=== PATIENT | male | born 1940 | race Caucasian/White ===

== ENCOUNTER → 2023-10-06 11:12 | Outpatient (REF) | payer OTHER, SELFPAY | LOC: HWRAD 11:12 | PROVIDERS: ATTENDING PHYSICIAN Internal Medicine Critical Care Medicine; FAMILY PHYSICIAN Internal Medicine Geriatric Medicine | DX: R59.0 Localized enlarged lymph nodes (principal) | CPT/HCPCS: 71250 ==

== ENCOUNTER 2023-10-20 03:52 | Emergency (ER) | payer OTHER, SELFPAY ==
[2023-10-20 04:06] VITALS: BP 144/83
--- NOTE | 2023-10-20 04:37 | ED.GENMED ---
History of Present Illness
General
Chief Complaint: Male Genito-Urinary Symptoms
Source: patient
Exam Limitations: none
Time Seen by Provider: 10/20/23 04:14
Nursing documentation reviewed up to this point in time: agreed with
Travel History
Have you had any contact with someone who has COVID-19?: No
Do you have any symptoms of coronavirus? Fever > 100 degrees, chills, cough, shortness of breath, sore throat, loss of taste or smell, muscle aches, or headache?: No
History of Present Illness
History of Present Illness:
82 y/o M presents with to ED. Patient states patient woke up at 0200 and was trying to shave himself. Patient states patient usually becomes confused like this when he has a UTI. Patient is currently aware he is in ED and
knows day of week. He resides at home with his . Patient last UTI was 1.5 months ago and he was prescribed abx. Patient states patient has had 4-5 UTIs in past 2 years. He does have a beatty catheter placed for about 2 years now and
reports no issues. Patient denies dysuria, fevers, chills, nausea, vomiting, abdominal pain, back pain, chest pain, or injuries/fall. 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
If applicable-neuro sx onset
Onset of symptoms known: Yes
Date of onset of symptoms: 10/20/23
Time of onset of symptoms: 02:00
Past History
Past History
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
ED Past Surgical History: Urological
Patient has exhibited threatening behavior?: No
PSI?: No
Social History
Tobacco: Non-smoker
Alcohol: None
Drug: None
Personal:
Living: other (September 2022 living in a rehab)
Employment: Retired
Family History
Family History: Other (Noncontributory)
Review of Systems
Review of Systems
All Other Systems: ROS reviewed and negative except as documented in HPI and ROS
Constitutional: Reports no symptoms
EENT: Reports no symptoms
Respiratory: Reports no symptoms
Cardiac: Reports no symptoms
ABD/GI: Reports no symptoms
: Reports no symptoms
Musculoskeletal: Reports no symptoms
Skin: Reports no symptoms
Neurological: Reports no symptoms
Endocrine: Reports no symptoms
Hematologic/Lymphatic: Reports no symptoms
Psychiatric: Reports other (confusion)
Phy Exam
General Physical Exam
General Presentation: well appearing and no apparent distress
General age: appears stated age
General Skin: warm and dry
General Habitus: normal
General Mental: alert
General Hydration: appears well hydrated
General Chronic Disability: urinary catheter
Cardiovascular Exam
Cardiovascular Exam: regular rate/rhythm, no edema, no gallop, no murmur and normal peripheral pulses
Pulmonary Exam
Pulmonary Exam: lungs clear, no respiratory distress, no rales, no crackles and no rhonchi
Gastrointestinal Exam
Gastrointestinal Exam: non tender, soft, non distended and no cva tenderness
Neurological Exam
Neurological Exam: alert, oriented x3, CN II-XII intact, no motor deficits and speech normal
Skin Exam
Skin Exam: normal color and warm/dry
Psychiatric Exam
Psychiatric Exam: normal mood/affect
Scores
NIH Stroke Score
Level of Consciousness: 0 - Alert
Best Horizontal Gaze: 0-Normal
Visual Verduzco: 0=Normal, no visual loss
Facial Palsy: 0=Normal, symmetrical
Course
Orders/Labs/Results
Orders:
Orders
10/20/23 04:49
Complete Blood Count/With Diff Urgent
Urinalysis Reflex To Culture Urgent
Date Specimen was Collected: 10/20/23
Time Specimen was Collected: 04:42
Urine Microscopic Reflex Cult Urgent
Urine Culture Urgent
DIXIE Source: U
Specimen Description:
Date Specimen was Collected: 10/20/23
Time Specimen was Collected: 04:42
10/20/23 05:12
Comprehensive Metabolic Panel Urgent
10/20/23 06:18
Fosfomycin [Monurol] 3 gm PO ONCE ONE
Abnormal Lab Results
10/20/23 10/20/23
04:49 05:12
RDW 15.0 H %
(11.5-14.5)
MPV 10.7 H fL
(7.4-10.4)
BUN 28 H mg/dl
(9-20)
Glucose 102 H mg/dl
(70-99)
Ur Occult Blood Reflex 3+ A
(Negative)
Leukocyte Esterase Rfl 2+ A
(Negative)
Urine RBC 70-80 A /HPF
(0-2)
Urine WBC (Reflex) >100 A /HPF
(0-5)
Urine Bacteria (Reflex) Many A
(Negative)
10/20/23 04:49
10/20/23 05:12
Vital Signs
Initial and Last Documented VS:
Initial Vital Signs
Temp Pulse Resp BP Pulse Ox
98.2 F 88 20 144/83 99
10/20/23 04:06 10/20/23 04:06 10/20/23 04:06 10/20/23 04:06 10/20/23 04:06
Last Documented Vital Signs
Temp Pulse Resp BP Pulse Ox
98.2 F 88 20 144/83 99
10/20/23 04:06 10/20/23 04:06 10/20/23 04:06 10/20/23 04:06 10/20/23 04:06
MDM/Problems Addressed
Differential Diagnosis Includes:
UTI
Pyelonephritis
Medication AMS
Stroke
MDM/Problems Addressed:
82 y/o M with recurrent UTI presents to ED with confusion. Physical exam grossly unremarkable as above. UA ordered. Medication side effect considered given patient is on multiple medications. However, patient has not started new meds or has taken
more than prescribed. Stroke unlikely given patient exam is normal. No speech or motor defects. Patient is able to answer questions and is aware of surroundings.
*Critical Care Note
Total Time (30-74mins, 75-104mins- exclusive of procedures): Not Applicable
ED Attending Note
-
Portions of this chart may have been created with voice recognition software.� Occasional wrong word or��sound alike� substitutions may have occurred due to the inherent limitations of voice recognition software.
Discharge Plan
Departure
Patient Disposition: Home (Routine Discharge)
Date of Disposition: 10/20/23
Time of Disposition: 06:23
Patient with high blood pressure during this ER visit?: Yes
Condition: Good
Discharge Problem:
Acute UTI (urinary tract infection)
Instructions: Urinary Tract Infection, Adult ED, BLOOD PRESSURE
Prescriptions:
No Action
simvastatin 20 MG tablet
20 mg PO DAILY@1530
cholecalciferol (vitamin D3) [Vitamin D3] 25 mcg (1,000 unit) Tablet
25 mcg PO DAILY Qty: 0
Citrucel 500 mg Tablet
1,000 mg PO BID
omeprazole 20 mg Capsule,Delayed Release(Dr/Ec)
20 mg PO DAILY@0930
mirtazapine 7.5 mg Tablet
15 mg PO DAILY@1929
ipratropium-albuterol 0.5 mg-3 mg(2.5 mg base)/3 mL solution for nebulization
3 ml INHALATION R BID
potassium citrate 10 mEq (1,080 mg) tablet extended release
10 meq PO BID@0930,1300
Myrbetriq 25 mg tablet extended release 24 hr
25 mg PO DAILY@193
me-xgf-SI-Kn-Os-mxhalpg-lutein 0.4-162-18 mg Tablet
1 tab PO DAILY
cefuroxime axetil 250 mg tablet
250 mg PO BID Qty: 10 0RF
Referrals:
Minh Jones MD [Family Provider] -
Activity Restrictions/Additional Instructions:
It was a pleasure meeting you and taking part in your care. We hope for your continued healing and wellness.
Please read discharge instructions in their entirety. However, they are for general education and may not describe your exact diagnosis at discharge. Information on your ER visit and medical conditions were discussed with you along with appropriate
follow up information...
If indicated, please take your medications as instructed and indicated on discharge paperwork.
Please schedule a follow up appointment as directed. Call to schedule an appointment
Please return to the emergency department with ANY change in, persisting, or worsening of symptoms. If any of your symptoms do not improve, or persist, or become more severe within 6-12 hours, please return to the emergency department for further
care.
Please return to the emergency department if you develop a headache, neck pain/stiffness, fever greater than 100.4F, chest pain, shortness of breath, persistent nausea, vomiting, slurred speech, difficulty walking, numbness/tingling, weakness, signs
of infection or any other symptoms that are worrisome to you.
If you have any questions or concerns please do not hesitate to call the Hospital at or E-mail me directly at
Interventions
Interventions:
*Risk Screen - Suicide Last Done: 10/20/23 05:05
*General Assessment Last Done: 10/20/23 04:06
*Neglect/Abuse Screening Last Done: 10/20/23 04:06
ED- Fall Risk Assessment Last Done: 10/20/23 04:06
ED-Male Genitourinary Assessment Last Done: 10/20/23 05:05
Discharge Date and Time
Print Language: KHMER
[2023-10-20 05:05] VITALS: BMI 23.5
[2023-10-20 05:06] LABS: % Basophils 0.6 % (0-2); % Eosinophils 3.3 % (0-6); % Immature Granulocytes 0.1 % (0-0.5); % Lymphocytes 22.8 % (20.5-51.1); % Monocytes 7.7 % (1.7-9.3); % Neutrophils 65.5 % (42.2-75.2); Absolute Eosinophils 0.2 10^3/uL (0-0.7); Absolute Lymphocytes 1.7 10^3/uL (1.2-3.4); Absolute Monocytes 0.6 10^3/uL (0.1-0.6); Absolute Neutrophils 4.7 10^3/uL (1.4-6.5); Hematocrit 41.6 % (39.0-52.0); Hemoglobin 13.9 g/dL (13.0-18.0); Mean Corp Hgb Conc. 33.4 g/dL (33.0-37.0); Mean Corpuscular Volume 86.7 fL (80.0-94.0); Mean Platelet Volume 10.7 fL (7.4-10.4); Nucleated Red Blood Cells % 0 % (-); Platelet Count 201 10^3/uL (130-400); White Blood Cell Count 7.2 10^3/uL (4.8-10.8)
[2023-10-20 05:13] LABS: Urine Albumin Trace (Neg - Trace); Urine Bilirubin Negative (Negative); Urine Character Slightly Cloudy (Clear); Urine Color Yellow; Urine Glucose Negative (Negative); Urine Ketone Negative (Negative); Urine Leukocyte 2+ (Negative); Urine Nitrite Negative (Negative); Urine Occult Blood 3+ (Negative); Urine Specific Gravity 1.015 (<1.030); Urine Urobilinogen Negative (Neg - 1+)
[2023-10-20 05:24] LABS: Urine Squamous Cell >30 /LPF (Few)
[2023-10-20 05:25] LABS: Urine Amorphous Seen; Urine Bacteria Many (Negative); Urine Calcium Oxalate Crystals Seen; Urine White Cell >100 /HPF (0-5)
[2023-10-20 05:26] LABS: Urine Mucus Moderate
[2023-10-20 05:28] LABS: Urine Red Blood Cell 70-80 /HPF (0-2)
[2023-10-20 06:13] LABS: ALT (SGPT) 38 U/L (0-50); AST (SGOT) 28 U/L (17-59); Albumin 3.6 g/dl (3.5-5.0); Alkaline Phosphatase 88 U/L (38-126); Blood Urea Nitrogen 28 mg/dl (9-20); Calcium 9.5 mg/dl (8.4-10.2); Carbon Dioxide 27 mmol/L (22-30); Chloride 102 mmol/L (98-107); Estimated Creatinine Clearance 60 ml/min; Glucose 102 mg/dl (70-99); Potassium 4.2 mmol/L (3.5-5.1); Sodium 137 mmol/L (135-145); eGFR > 60.00
[2023-10-20] MEDS: MONUROL 3 GM PO (06:36)
== END 2023-10-20 06:44 | disposition home or self-care (01) ==
LOC: EMR 03:52
PROVIDERS: EMERGENCY PHYSICIAN Student in an Organized Health Care Education/Training Program; FAMILY PHYSICIAN Internal Medicine Geriatric Medicine
DX: N39.0 Urinary tract infection, site not specified (principal); I10 Essential (primary) hypertension
CPT/HCPCS: 99283; 80053; 81003; 81015; 85025; 87086

== ENCOUNTER 2024-01-09 21:25 | Emergency (ER) | payer OTHER, SELFPAY ==
[2024-01-09 21:26] VITALS: BP 178/94
[2024-01-09 22:00] VITALS: BP 121/69
[2024-01-09 22:03] VITALS: BMI 22.6
[2024-01-09 22:15] LABS: Urine Albumin 2+ (Neg - Trace); Urine Bilirubin Negative (Negative); Urine Character Very Cloudy (Clear); Urine Color Yellow; Urine Glucose Negative (Negative); Urine Ketone Negative (Negative); Urine Leukocyte 2+ (Negative); Urine Nitrite Negative (Negative); Urine Occult Blood 4+ (Negative); Urine Specific Gravity 1.015 (<1.030); Urine Urobilinogen 1+ (Neg - 1+)
--- NOTE | 2024-01-09 22:16 | EDRN ---
Pt's spouse says pt is here because he probably has a uti. Pt with permanent indwelling beatty. says pt got confused this evening which made pt anxious which is what prompted to think pt might has a uti. also noted urine
darker in color past 2 days. No chills/fever/cough.
[2024-01-09 22:26] LABS: Urine Calcium Oxalate Crystals Present; Urine White Cell >100 /HPF (0-5)
--- NOTE | 2024-01-09 22:55 | ED.GENMED ---
History of Present Illness
General
Chief Complaint: Breathing Problem
Source: patient and family
Exam Limitations: none
Time Seen by Provider: 01/09/24 22:42
Nursing documentation reviewed up to this point in time: agreed with
Travel History
Have you had any contact with someone who has COVID-19?: No
Do you have any symptoms of coronavirus? Fever > 100 degrees, chills, cough, shortness of breath, sore throat, loss of taste or smell, muscle aches, or headache?: Yes
Symptoms:: shortness of breath
History of Present Illness
History of Present Illness:
This a pleasant 83-year-old male who presents with confusion and weakness. Patient significant other states that he feels that he has a urinary tract infection. Patient denies fever, chills, nausea or vomiting. Significant other states that
patient has had urinary tract infections in the past at has typically gets at home for them. At last visit he had Monurol, which was effective. Patient lives at home with his . Patient is awake, alert, oriented x 3.
Vital signs are stable. Patient not hypoxic
Nursing note reviewed. I agree with nursing documentation up to this point in time.
Home Meds and allergies reviewed.
NUMBER AND COMPLEXITY OF PROBLEMS ADDRESSED AT THE ENCOUNTER
� Chronic conditions affecting care: Frequent UTIs
� Acute Exacerbation and/or Progression of Chronic Illness: Acute urinary tract infection
� Differential Diagnosis includes: UTI, dehydration, kidney stone, pyelonephritis
AMOUNT AND/OR COMPLEXITY OF DATA TO BE REVIEWED AND ANALYZED
I performed an independent evaluation of the following and my interpretation is:
EKG:
CT:
X-rays:
Ultrasound:
Laboratory Studies: Urinalysis shows urinary tract infection
Other:
Review of other/old records:
Clinical information was obtained by an independent historian:
Prescriptions/Medications Considered but not given:
Further testing considered but not performed:
RISK OF COMPLICATIONS AND/OR MORBIDITY OR MORTALITY OF PATIENT MANAGEMENT
Social determinants of health affecting care: Good Social Support
Discussion with other providers:
Escalation of care including admission/observation vs risk of discharge considered:
Not applicable
CRITICAL CARE NOTE: Not applicable
Total Time (exclusive of procedures):
Update:
Past History
Past History
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
ED Past Surgical History: Urological
Patient has exhibited threatening behavior?: No
PSI?: No
Social History
Tobacco: Non-smoker
Alcohol: None
Drug: None
Personal:
Living: other (September 2022 living in a rehab)
Employment: Retired
Family History
Family History: Other (Noncontributory)
Review of Systems
Review of Systems
Allergies reviewed?: Yes
Other source history: family
All Other Systems: ROS reviewed and negative except as documented in HPI and ROS
Constitutional: Reports no symptoms
EENT: Reports no symptoms
Respiratory: Denies cough or trouble breathing
Cardiac: Reports no symptoms
ABD/GI: Reports no symptoms
: Reports no symptoms
Musculoskeletal: Reports no symptoms
Skin: Reports no symptoms
Neurological: Reports weakness; Denies dizzy, headache or numbness
Endocrine: Reports no symptoms
Hematologic/Lymphatic: Reports no symptoms
Psychiatric: Reports anxiety
Phy Exam
General Physical Exam
General Presentation: well appearing
General age: appears stated age
General Skin: warm and dry
General Habitus: elderly
General Mental: alert
Cardiovascular Exam
Cardiovascular Exam: regular rate/rhythm
Pulmonary Exam
Pulmonary Exam: lungs clear, no respiratory distress, no wheezing and no cough
Gastrointestinal Exam
Gastrointestinal Exam: normal bowel sounds and non tender
Neurological Exam
Neurological Exam: alert, oriented x3, no motor deficits and speech normal
Musculoskeletal Exam
Musculoskeletal Exam: neuro vasc intact and other (No CVA tenderness to palpation)
Skin Exam
Skin Exam: normal color and warm/dry
Psychiatric Exam
Psychiatric Exam: normal mood/affect
Scores
Heart Failure Risk
Heart Failure Risk Score: Not Applicable
Course
Orders/Labs/Results
Orders:
Orders
01/09/24 22:00
Tetanus/Diphth/Acelpertussis [Adacel] 0.5 ml IM .ONCE ONE
01/09/24 22:07
Urinalysis Reflex To Culture Urgent
Date Specimen was Collected: 01/09/24
Time Specimen was Collected: 22:04
Urine Microscopic Reflex Cult Urgent
Urine Culture Urgent
DIXIE Source: U
Specimen Description:
Date Specimen was Collected: 01/09/24
Time Specimen was Collected: 22:04
01/09/24 22:54
Fosfomycin [Monurol] 3 gm PO ONCE ONE
Abnormal Lab Results
01/09/24
22:07
Ur Occult Blood Reflex 4+ A
(Negative)
Leukocyte Esterase Rfl 2+ A
(Negative)
Urine WBC (Reflex) >100 A /HPF
(0-5)
Urine Albumin (Reflex) 2+ A
(Neg - Trace)
Vital Signs
Initial and Last Documented VS:
Initial Vital Signs
Temp Pulse Resp BP Pulse Ox
97.8 F 96 22 178/94 97
01/09/24 21:26 01/09/24 21:26 01/09/24 21:26 01/09/24 21:26 01/09/24 21:26
Last Documented Vital Signs
Temp Pulse Resp BP Pulse Ox
97.8 F 69 15 101/49 96
01/09/24 21:26 01/10/24 00:00 01/10/24 00:00 01/10/24 00:00 01/09/24 23:00
MDM/Problems Addressed
Differential Diagnosis Includes:
UTI which I feel is the most likely diagnosis as he does have signs of urinary tract infection on urinalysis. There is some gross hematuria which I feel is due to the UTI. I do not feel that he has a kidney stone at this point. He denies any
flank tenderness. He has no CVA tenderness to palpation. He has no fevers.
Chronic conditions affecting care:
Frequent UTIs
*Critical Care Note
Total Time (30-74mins, 75-104mins- exclusive of procedures): Not Applicable
ED Attending Note
-
Portions of this chart may have been created with voice recognition software.� Occasional wrong word or��sound alike� substitutions may have occurred due to the inherent limitations of voice recognition software.
Discharge Plan
Departure
Patient Disposition: Home (Routine Discharge)
Date of Disposition: 01/09/24
Time of Disposition: 23:46
Patient with high blood pressure during this ER visit?: Yes
Condition: Fair
Discharge Problem:
Urinary tract infection, Hematuria
Instructions: Urinary Tract Infection, Adult ED, Blood in Urine (Hematuria), Adult ED, BLOOD PRESSURE
Prescriptions:
No Action
simvastatin 20 MG tablet
20 mg PO DAILY
cholecalciferol (vitamin D3) [Vitamin D3] 25 mcg (1,000 unit) Tablet
25 mcg PO DAILY Qty: 0
Citrucel 500 mg Tablet
1,000 mg PO BID
omeprazole 20 mg Capsule,Delayed Release(Dr/Ec)
20 mg PO DAILY
mirtazapine 7.5 mg Tablet
15 mg PO DAILY
ipratropium-albuterol 0.5 mg-3 mg(2.5 mg base)/3 mL solution for nebulization
3 ml INHALATION R BID
potassium citrate 10 mEq (1,080 mg) tablet extended release
10 meq PO BID
mirabegron [Myrbetriq] 25 mg tablet extended release 24 hr
25 mg PO DAILY
Centrum Silver Tablet
1 tab PO DAILY
Probiotic Acidophilus
1 cap PO DAILY
Referrals:
Jerome Phillips Jr., MD [Active] - As needed
Activity Restrictions/Additional Instructions:
It was a pleasure meeting you and taking part in your care. We hope for your continued healing and wellness.
Please read discharge instructions in their entirety. However, they are for general education and may not describe your exact diagnosis at discharge. Information on your ER visit and medical conditions were discussed with you along with appropriate
follow up information...
If indicated, please take your medications as instructed and indicated on discharge paperwork.
Please schedule a follow up appointment as directed. Call to schedule an appointment
Please return to the emergency department with ANY change in, persisting, or worsening of symptoms. If any of your symptoms do not improve, or persist, or become more severe within 6-12 hours, please return to the emergency department for further
care.
Please return to the emergency department if you develop a headache, neck pain/stiffness, fever greater than 100.4F, chest pain, shortness of breath, persistent nausea, vomiting, slurred speech, difficulty walking, numbness/tingling, weakness, signs
of infection or any other symptoms that are worrisome to you.
If you have any questions or concerns please do not hesitate to call the Hospital at or E-mail me directly at [email or web address]
Interventions
Interventions:
*Risk Screen - Suicide Last Done: 01/09/24 22:15
*General Assessment Last Done: 01/09/24 21:30
*Neglect/Abuse Screening Last Done: 01/09/24 21:26
*ED COVID-19 Vaccine History Last Done: 01/09/24 21:30
*Nursing Disposition Last Done: 01/10/24 00:18
ED- Cardiac Assessment Last Done: 01/09/24 22:15
ED- Pulmonary Assessment Last Done: 01/09/24 22:15
Discharge Date and Time
Discharge Date/Time: 01/10/24 00:18
Print Language: [email or web address]
[2024-01-09 23:00] VITALS: BP 111/53
[2024-01-10] VITALS: BP 101/49
[2024-01-10] MEDS: MONUROL 3 GM PO (00:09)
== END 2024-01-10 00:18 | disposition home or self-care (01) ==
LOC: EMR 21:25
PROVIDERS: EMERGENCY PHYSICIAN Student in an Organized Health Care Education/Training Program; FAMILY PHYSICIAN Internal Medicine Geriatric Medicine
DX: N39.0 Urinary tract infection, site not specified (principal); R31.9 Hematuria, unspecified; E78.00 Pure hypercholesterolemia, unspecified; I10 Essential (primary) hypertension; K21.9 Gastro-esophageal reflux disease without esophagitis; F32.A Depression, unspecified; N40.0 Benign prostatic hyperplasia without lower urinary tract symptoms; Z87.440 Personal history of urinary (tract) infections; Z87.442 Personal history of urinary calculi
CPT/HCPCS: 99282; 81003; 81015; 87086

== ENCOUNTER 2024-12-13 21:59 | Emergency (ER) | payer OTHER, SELFPAY ==
[2024-12-13 22:07] VITALS: BP 156/80
[2024-12-13 22:45] LABS: % Basophils 0.6 % (0-2); % Eosinophils 3.7 % (0-6); % Immature Granulocytes 0.2 % (0-0.5); % Lymphocytes 30.8 % (20.5-51.1); % Monocytes 11.1 % (1.7-9.3); % Neutrophils 53.6 % (42.2-75.2); Absolute Eosinophils 0.2 10^3/uL (0-0.7); Absolute Lymphocytes 1.9 10^3/uL (1.2-3.4); Absolute Monocytes 0.7 10^3/uL (0.1-0.6); Absolute Neutrophils 3.3 10^3/uL (1.4-6.5); Hemoglobin 15.6 g/dL (13.0-18.0); Mean Corp Hgb Conc. 34.7 g/dL (33.0-37.0); Mean Corpuscular Hgb 30.3 pg (27.0-31.0); Mean Corpuscular Volume 87.4 fL (80.0-94.0); Mean Platelet Volume 9.9 fL (7.4-10.4); Nucleated Red Blood Cells % 0 % (-); Platelet Count 191 10^3/uL (130-400); Red Blood Cell Count 5.15 10^6/uL (4.70-6.10); White Blood Cell Count 6.2 10^3/uL (4.8-10.8)
[2024-12-13 23:00] LABS: ALT (SGPT) 42 U/L (0-50); AST (SGOT) 27 U/L (17-59); Albumin 4.2 g/dl (3.5-5.0); Alkaline Phosphatase 86 U/L (38-126); Blood Urea Nitrogen 29 mg/dl (9-20); Calcium 9.9 mg/dl (8.4-10.2); Carbon Dioxide 27 mmol/L (22-30); Chloride 104 mmol/L (98-107); Glucose 108 mg/dl (70-99); Potassium 4.2 mmol/L (3.5-5.1); Sodium 140 mmol/L (135-145); Total Bilirubin 0.9 mg/dl (0.2-1.3); Total Protein 7.4 g/dl (6.3-8.2); eGFR > 60.00
[2024-12-13 23:03] LABS: COVID-19 Antigen Negative (Negative)
[2024-12-13 23:11] LABS: Troponin I < 0.012 ng/ml
[2024-12-14 01:25] VITALS: BP 134/69
[2024-12-14] MEDS: DUONEB 3 ML INH (01:27)
--- NOTE | 2024-12-14 01:29 | ED.GENMED ---
History of Present Illness
General
Chief Complaint: Cough
Source: patient, spouse and previous hospital records (Previous hospitalization June 2023 for left lower lobe pneumonia.)
Exam Limitations: none
Time Seen by Provider: 12/14/24 00:32
Nursing documentation reviewed up to this point in time: agreed with
History of Present Illness
History of Present Illness:
This is an 83-year-old gentleman who resides at home with his . He has somewhat extensive past medical history including hypertension, hyperlipidemia, congenital myotonia, chronic bronchitis, GERD, BPH, kidney stones, urinary retention with
chronic indwelling Vargas catheter. Previous hospitalization June 2023 for treatment of left lower lobe pneumonia. He is maintained on nebulizer treatments, inhalers, as well as vibrating vest on daily basis.
He does note some chronic congestion, chronic cough but notes marked increase in shortness of breath, cough tonight after going to bed. Continues with some shortness of breath, difficulty catching his breath despite sitting up. He denies fever no
chills, no chest pain, no sore throat nor nasal congestion, no sneezing.
No abdominal pain, no nausea or vomiting. Appetite has been good. No change in weight.
No close contacts with similar symptoms.
No leg pain or swelling.
He did receive routine COVID booster December 12.
He has been complaining of some intermittent right flank pain over the past several days and has an appointment with Dr. Nice scheduled for Wednesday.
Routine Vargas catheter change every 5 weeks with unremarkable Vargas catheter change last week. Vargas has been draining clear to minimally cloudy urine. No hematuria. No dysuria nor leaking about the catheter.
Past History
Past History
ED Past Medical History: GERD, HTN, Hypercholesterolemia, Other (Kidney stones, urinary retention with chronic indwelling Vargas catheter, congenital myotonia, chronic bronchitis, GERD, UTI, pneumonia) and Other (Depression, congenital myotonia with
hereditary motor and sensory neuropathy, gait disorder, chronic Vargas for urinary retention, BPH, kidney stones)
ED Past Surgical History: Urological
Patient has exhibited threatening behavior?: No
PSI?: No
Social History
Tobacco: Non-smoker
Alcohol: None
Drug: None
Personal:
Living: other (September 2022 living in a rehab)
Employment: Retired
Family History
Family History: Other (Noncontributory)
Phy Exam
Physical Exam
Physical Exam:
GENERAL: 83-year-old gentleman appears his stated age, awake and alert, appears somewhat mildly debilitated, very mild resting tachypnea but no cough appreciated. is accompanying.
EYE: pupils equal and reactive. anicteric
NECK: Supple, nontender, no meningismus, no significant adenopathy.
ENT: posterior pharynx is without injection, scant pearly postnasal drip is noted, oral mucosa is moist. TM clear b/l, nares patent.
CARDIAC: Regular rate and rhythm. no murmur.
LUNGS: Mild resting tachypnea, mildly decreased breath sounds at bases otherwise clear to auscultation.
ABDOMEN: Soft, nondistended, without focal tenderness, no r/g, mild right CVA tenderness with percussion, normoactive BS.
NEUROLOGICAL: Alert and oriented x3, no focal neuro deficits.
SKIN: Warm and dry, normal color, skin intact. No rash.
MUSCULOSKELETAL: No C/C/E. peripheral pulses are full and equal b/l. No palpable tenderness.
PSYCH: Normal and appropriate interaction.
Course
Orders/Labs/Results
Orders:
Orders
12/13/24 22:10
Electrocardiogram (*1) Urgent
Reason for Study: Chest Pain
EKG- Treatment ONCE
12/13/24 22:11
CR Chest - 2 Views Urgent
Comment:
Reason For Exam: cough
12/13/24 22:32
COVID-19 Antigen Urgent
Source: Nasal Swab
Complete Blood Count/With Diff Urgent
Comprehensive Metabolic Panel Urgent
NT-proBNP Urgent
Comment: ADDED
Troponin I Urgent
Influenza A+B Rapid Molecular Urgent
DIXIE Source: Nasal Swab
Specimen Description:
12/14/24 00:48
Add On- LAB Urgent
Tests Added?: BNP
Urinalysis Reflex To Culture Urgent
Date Specimen was Collected: 12/14/24
Time Specimen was Collected: 01:33
12/14/24 00:49
Ipratropium/Albuterol Sulfate [Duoneb] 3 ml INH R NOW STA
12/14/24 00:52
CT Abd/pel Without Iv Or Oral Urgent
Comment:
Reason For Exam: intermittent R flank pain x few days (hx stones)
12/14/24 01:28
D-Dimer Urgent
Abnormal Lab Results
12/13/24 12/14/24
22:32 01:28
Absolute Monos (auto) 0.7 H 10^3/uL
(0.1-0.6)
Monocytes % 11.1 H %
(1.7-9.3)
D-Dimer 0.80 H ug/mlFEU
(0.00-0.50)
BUN 29 H mg/dl
(9-20)
Glucose 108 H mg/dl
(70-99)
12/13/24 22:32
12/13/24 22:32
Vital Signs
Initial and Last Documented VS:
Initial Vital Signs
Temp Pulse Resp BP Pulse Ox
97.6 F 84 16 156/80 98
12/13/24 22:07 12/13/24 22:07 12/13/24 22:07 12/13/24 22:07 12/13/24 22:07
Last Documented Vital Signs
Temp Pulse Resp BP Pulse Ox
97.6 F 73 20 132/72 98
12/13/24 22:07 12/14/24 01:46 12/14/24 01:51 12/14/24 01:51 12/14/24 01:51
MDM/Problems Addressed
Differential Diagnosis Includes:
Concern for exacerbation of chronic bronchitis, pneumonia, CHF. Less likely ACS. Other consideration is PE.
He also notes intermittent right flank pain over the past few days. History of kidney stones. Concern for ureteric stone, pyelonephritis.
Labs thus far are unremarkable, troponin is negative. Normal white blood cell count.
Chest x-ray shows clear lung cintron, no evidence of pneumonia nor definitive evidence of CHF.
EKG shows normal sinus rhythm, right bundle branch block. Similar to previous August 2023 safer heart rate has decreased from 134 to now 80.
Will check D-dimer, BNP, UA and will plan for CT abdomen pelvis.
If D-dimer elevated will plan for CT PE study
Will trial DuoNeb nebulizer for shortness of breath.
*Radiology
Radiology exam reviewed: preliminary read by ED provider (Chest x-ray shows no acute findings. Clear lung cintron. Previous left lower lobe pneumonia noted June 2023 has since resolved.) and radiology read reviewed
*Pulse Oximetry
Patient hypoxic: no
*EKG
Interpreted by ED Provider?: Yes
Comparison EKG: changes noted (Heart rate has decreased from 130 to now 80. Right bundle branch block is chronic and unchanged.)
Rate: normal
Rhythm: sinus
[place]: left axis deviation
Interval: normal interval
QRS Pattern: right bundle branch block
Ischemia: no ischemia
*Front End Web Developer Interpretation
Rate: normal
Interpretation: normal
Rhythm: sinus
*Critical Care Note
Total Time (30-74mins, 75-104mins- exclusive of procedures): Not Applicable
Update Note
Update Note:
03:10
Patient feeling markedly improved after nebulizer treatment. No further cough nor congestion. No respiratory distress.
Age-adjusted D-dimer is normal. BNP is normal.
CT shows nonobstructing calyceal stones in the kidneys and multiple stone fragments in the urinary bladder but no ureteral stone fragments, no hydronephrosis.
I suspect acute exacerbation of chronic bronchitis and will treat with a short course of prednisone.
Recommend increasing nebulizer treatments to 4 times daily at least over the next 5 to 7 days.
Stay well-hydrated on a daily basis.
A prescription for Z-Breezy has been provided to be filled and started if cough, congestion worsen or if he develops a fever.
Prompt follow-up with PCP for recheck.
Follow-up with Dr. Nevarez is on Wednesday as already scheduled.
Return precautions discussed.
ED Attending Note
-
Portions of this chart may have been created with voice recognition software.� Occasional wrong word or��sound alike� substitutions may have occurred due to the inherent limitations of voice recognition software.
Discharge Plan
Departure
Patient Disposition: Home (Routine Discharge)
Date of Disposition: 12/14/24
Time of Disposition: 03:19
Patient with high blood pressure during this ER visit?: No
Condition: Good
Discharge Problem:
Acute exacerbation of chronic bronchitis, Bilateral kidney stones
Instructions: Kidney stones in adults, Chronic bronchitis
Prescriptions:
New
prednisone 20 mg tablet
40 mg PO DAILY Qty: 10 0RF
azithromycin [Zithromax Z-Breezy] 250 mg tablet
250 mg PO DAILY 5 Days Qty: 6 0RF
Rx Instructions:
2 TABLETS DAY 1, THEN ONE TABLET DAY 2-5.
No Action
simvastatin 20 MG tablet
20 mg PO DAILY
cholecalciferol (vitamin D3) [Vitamin D3] 25 mcg (1,000 unit) Tablet
25 mcg PO DAILY Qty: 0
Citrucel 500 mg Tablet
1,000 mg PO BID
omeprazole 20 mg Capsule,Delayed Release(Dr/Ec)
20 mg PO DAILY
mirtazapine 7.5 mg Tablet
15 mg PO DAILY
ipratropium-albuterol 0.5 mg-3 mg(2.5 mg base)/3 mL solution for nebulization
3 ml INHALATION R BID
potassium citrate 10 mEq (1,080 mg) tablet extended release
10 meq PO BID
mirabegron [Myrbetriq] 25 mg tablet extended release 24 hr
25 mg PO DAILY
Centrum Silver Tablet
1 tab PO DAILY
Probiotic Acidophilus
1 cap PO DAILY
Referrals:
Emily Worley MD [Family Provider] - Call in 1-3 days for appt
Alessandro Nice MD [Active] - Keep scheduled appt
Activity Restrictions/Additional Instructions:
Increase nebulizer treatments to 4 times/day over the next week.
Stay well hydrated on a daily basis.
You have been prescribed short course of prednisone to take daily for 5 days.
If cough, congestion worsen, or if you develop a fever, fill and start the zpack
Interventions
Interventions:
*Risk Screen - Suicide Last Done: 12/13/24 22:07
*General Assessment Last Done: 12/14/24 01:39
*Neglect/Abuse Screening Last Done: 12/13/24 22:07
*ED- Fall Risk Assessment Last Done: 12/14/24 01:39
*ED COVID-19 Vaccine History Last Done: 12/13/24 22:07
ED- Pulmonary Assessment Last Done: 12/14/24 01:39
Discharge Date and Time
Print Language: CHINESE
[2024-12-14 01:42] VITALS: BMI 22.8
[2024-12-14 01:48] LABS: NT-proBNP 138 pg/ml
[2024-12-14 01:51] VITALS: BP 132/72
--- NOTE | 2024-12-14 03:29 | DOWNTIME ---
There was a [employer] Client [employer]iller Downtime on 12/14/2024 from 0200 to 12/15/2023 at 0318 . Downtime documentation of patient's care, including medication administrations, has been reconciled in the electronic record per guidelines. Refer to the
patient's paper chart under the miscellaneous tab to see printed paper medication records and downtime forms.
[2024-12-14 03:31] LABS: Urine Albumin 3+ (Neg - Trace); Urine Bilirubin Negative (Negative); Urine Character Cloudy (Clear); Urine Color Amber; Urine Glucose Negative (Negative); Urine Ketone Negative (Negative); Urine Leukocyte 3+ (Negative); Urine Nitrite Positive (Negative); Urine Occult Blood 4+ (Negative); Urine Urobilinogen Negative (Neg - 1+)
[2024-12-14 03:32] LABS: Urine Bacteria Few (Negative); Urine Calcium Oxalate Crystals Present; Urine Red Blood Cell 60-70 /HPF (0-2); Urine Squamous Cell 0-2 /LPF (Few)
== END 2024-12-14 03:46 | disposition home or self-care (01) ==
LOC: EMR 21:59
PROVIDERS: Emergency Medicine; EMERGENCY PHYSICIAN Emergency Medicine; FAMILY PHYSICIAN Internal Medicine Geriatric Medicine
DX: J20.9 Acute bronchitis, unspecified (principal); N20.0 Calculus of kidney; I10 Essential (primary) hypertension; E78.00 Pure hypercholesterolemia, unspecified; K21.9 Gastro-esophageal reflux disease without esophagitis; N40.1 Benign prostatic hyperplasia with lower urinary tract symptoms; Z87.440 Personal history of urinary (tract) infections; Z87.442 Personal history of urinary calculi
CPT/HCPCS: 99284; 94640; 71046; 74176; 80053; 81003; 81015; 83880; 84484; 85025; 85379; 87086; 87502; 87811; 93005

== ENCOUNTER 2025-02-06 15:46 | Emergency (ER) | payer OTHER, SELFPAY ==
[2025-02-06 15:48] VITALS: BP 196/111
--- NOTE | 2025-02-06 16:45 | ED.GENMED ---
Addendum entered and electronically signed by Dov Hoskins PA-C 02/08/25 07:13:
Urine culture preliminarily shows 100,000 colony-forming units of gram-negative bacilli. Given fosfomycin. Sensitivities pending
Original Note:
History of Present Illness
General
Chief Complaint: Catheter/Tube Problem
Source: patient
Exam Limitations: none
Time Seen by Provider: 02/06/25 16:34
Nursing documentation reviewed up to this point in time: agreed with
History of Present Illness
History of Present Illness:
Patient to ED with complaint of blocked beatty catheter since this AM. Reports pelvic pain and pressure. Brought to ED by spouse for eval.
Past History
Past History
ED Past Medical History: GERD, HTN, Hypercholesterolemia, Other (Kidney stones, urinary retention with chronic indwelling Beatty catheter, congenital myotonia, chronic bronchitis, GERD, UTI, pneumonia) and Other (Depression, congenital myotonia with
hereditary motor and sensory neuropathy, gait disorder, chronic Beatty for urinary retention, BPH, kidney stones)
ED Past Surgical History: Urological
Patient has exhibited threatening behavior?: No
PSI?: No
Social History
Tobacco: Non-smoker
Alcohol: None
Drug: None
Personal:
Living: other (September 2022 living in a rehab)
Employment: Retired
Family History
Family History: Other (Noncontributory)
Review of Systems
Review of Systems
Allergies reviewed?: Yes
All Other Systems: ROS reviewed and negative except as documented in HPI and ROS
Constitutional: Reports no symptoms
EENT: Reports no symptoms
Respiratory: Reports no symptoms
Cardiac: Reports no symptoms
ABD/GI: Reports no symptoms
: Reports other (blocked beatty catheter)
Musculoskeletal: Reports no symptoms
Skin: Reports no symptoms
Neurological: Reports no symptoms
Psychiatric: Reports no symptoms
Phy Exam
General Physical Exam
General Presentation: moderate distress
General age: appears stated age
General Skin: warm and dry
General Habitus: normal
General Mental: alert
Gastrointestinal Exam
Gastrointestinal Exam: non tender and soft
Genitourinary Exam Male
Exam Male: other (Beatty catheter replaced by RN. Drained immediate 600+cc. Initially blood tinged, now clear yellow urine)
Musculoskeletal Exam
Musculoskeletal Exam: neuro vasc intact
Skin Exam
Skin Exam: normal color, warm/dry and no rash
Psychiatric Exam
Psychiatric Exam: normal mood/affect
Course
Orders/Labs/Results
Orders:
Orders
02/06/25 16:47
Urinalysis Reflex To Culture Urgent
Date Specimen was Collected: 02/06/25
Time Specimen was Collected: 16:46
Urine Microscopic Reflex Cult Urgent
Urine Culture Urgent
DIXIE Source: U
Specimen Description:
Date Specimen was Collected: 02/06/25
Time Specimen was Collected: 16:46
02/06/25 18:20
Fosfomycin [Monurol] 3 gm PO ONCE ONE
Abnormal Lab Results
02/06/25
16:47
Ur Occult Blood Reflex 4+ A
(Negative)
Leukocyte Esterase Rfl 3+ A
(Negative)
Urine RBC 80-90 A /HPF
(0-2)
Urine WBC (Reflex) 26-30 A /HPF
(0-5)
Urine Bacteria (Reflex) Many A
(Negative)
Urine Albumin (Reflex) 2+ A
(Neg - Trace)
Vital Signs
Initial and Last Documented VS:
Initial Vital Signs
Temp Pulse Resp BP Pulse Ox
97.4 F 114 16 196/111 97
02/06/25 15:48 02/06/25 15:48 02/06/25 15:48 02/06/25 15:48 02/06/25 15:48
Last Documented Vital Signs
Temp Pulse Resp BP Pulse Ox
98.1 F 114 26 144/70 98
02/06/25 17:08 02/06/25 16:11 02/06/25 16:11 02/06/25 18:00 02/06/25 18:15
*Critical Care Note
Total Time (30-74mins, 75-104mins- exclusive of procedures): Not Applicable
Update Note
Update Note:
Patient to ED for blocked beatty catheter. Beatty changed by RN, drained 600+cc of initially blood tinged urine, then clear yellow urine. No further abd. pain. UA resultes reviewed with patient and spouse. Will treat for suspected UTI. Spouse
reports MOnuril has been helpful in the past and requests we use this antibiotic tonight. Monuril given. He is discharged home and will follo up with Urology as scheduled. Given instructions on s/s to return to ED and they are agreeable to plan.
ED Attending Note
-
Portions of this chart may have been created with voice recognition software.� Occasional wrong word or��sound alike� substitutions may have occurred due to the inherent limitations of voice recognition software.
Discharge Plan
Departure
Patient Disposition: Home (Routine Discharge)
Date of Disposition: 02/06/25
Time of Disposition: 18:21
Patient with high blood pressure during this ER visit?: No
Condition: Good
Covid-19: Not Applicable
Discharge Problem:
Complication, blocked Beatty catheter
Instructions: Urinary tract infections in adults, How to Care for Your Beatty Catheter, Male
Prescriptions:
No Action
simvastatin 20 MG tablet
20 mg PO DAILY
cholecalciferol (vitamin D3) [Vitamin D3] 25 mcg (1,000 unit) Tablet
25 mcg PO DAILY Qty: 0
Citrucel 500 mg Tablet
1,000 mg PO BID
omeprazole 20 mg Capsule,Delayed Release(Dr/Ec)
20 mg PO DAILY
mirtazapine 7.5 mg Tablet
15 mg PO DAILY
ipratropium-albuterol 0.5 mg-3 mg(2.5 mg base)/3 mL solution for nebulization
3 ml INHALATION R BID
potassium citrate 10 mEq (1,080 mg) tablet extended release
10 meq PO BID
mirabegron [Myrbetriq] 25 mg tablet extended release 24 hr
25 mg PO DAILY
Centrum Silver Tablet
1 tab PO DAILY
Probiotic Acidophilus
1 cap PO DAILY
prednisone 20 mg tablet
40 mg PO DAILY Qty: 10 0RF
azithromycin [Zithromax Z-Breezy] 250 mg tablet
250 mg PO DAILY 5 Days Qty: 6 0RF
Rx Instructions:
2 TABLETS DAY 1, THEN ONE TABLET DAY 2-5.
Referrals:
NONE,* [Active, Internal Medicine]
Activity Restrictions/Additional Instructions:
Follow up with urology as scheduled. Return to the emergency for any changes in/worsnening of your symtoms.
Interventions
Interventions:
*Risk Screen - Suicide Last Done: 02/06/25 15:48
*General Assessment Last Done: 02/06/25 19:01
*Neglect/Abuse Screening Last Done: 02/06/25 15:48
*ED- Fall Risk Assessment Last Done: 02/06/25 16:12
*ED COVID-19 Vaccine History Last Done: 02/06/25 16:12
*Nursing Disposition Last Done: 02/06/25 19:01
QK-Dvuxlb-Ywgnjhiloe Assessment Last Done: 02/06/25 17:08
ED-Male Genitourinary Assessment Last Done: 02/06/25 17:08
Discharge Date and Time
Discharge Date/Time: 02/06/25 19:03
Print Language: TURKMEN
[2025-02-06 16:57] LABS: Urine Albumin 2+ (Neg - Trace); Urine Bilirubin Negative (Negative); Urine Character Clear (Clear); Urine Color Yellow; Urine Glucose Negative (Negative); Urine Ketone Negative (Negative); Urine Leukocyte 3+ (Negative); Urine Nitrite Negative (Negative); Urine Occult Blood 4+ (Negative); Urine Urobilinogen Negative (Neg - 1+); Urine pH 6.5 (5.0-9.0)
[2025-02-06 17:00] VITALS: BP 130/78
[2025-02-06 17:59] LABS: Urine Bacteria Many (Negative); Urine Red Blood Cell 80-90 /HPF (0-2); Urine Squamous Cell 0-2 /LPF (Few); Urine White Cell 26-30 /HPF (0-5)
[2025-02-06 18:00] VITALS: BP 144/70
[2025-02-06] MEDS: MONUROL 3 GM PO (18:45)
== END 2025-02-06 19:03 | disposition home or self-care (01) ==
LOC: EMR 15:46
PROVIDERS: Nurse Practitioner; EMERGENCY PHYSICIAN Student in an Organized Health Care Education/Training Program; FAMILY PHYSICIAN Internal Medicine Geriatric Medicine
DX: T83.091A Other mechanical complication of indwelling urethral catheter, initial encounter (principal); Y84.6 Urinary catheterization as the cause of abnormal reaction of the patient, or of later complication, without mention of misadventure at the time of the procedure; Y73.1 Therapeutic (nonsurgical) and rehabilitative gastroenterology and urology devices associated with adverse incidents
CPT/HCPCS: 99283; 51702; 81003; 81015; 87077; 87086

== ENCOUNTER 2025-02-23 08:48 | Emergency (ER) | payer OTHER, SELFPAY ==
[2025-02-23 08:49] VITALS: BP 173/109
--- NOTE | 2025-02-23 09:38 | ED.GENMED ---
History of Present Illness
General
Chief Complaint: Catheter/Tube Problem
Time Seen by Provider: 02/23/25 09:15
History of Present Illness
History of Present Illness:
84-year-old male with history of chronic urinary retention status post Vargas catheter presents to the emergency department with concern for possible blocked Vargas catheter. Partner states that upon waking up today his drainage bag was emptied
however there was no output for the next 2 to 3 hours. On arrival to the ED there is urine in the leg bag and this was irrigated easily by RN. He reports having pain at the tip of his penis however this is since resolved. No fevers or chills.
Catheter was last changed 2 weeks ago
Past History
Past History
ED Past Medical History: GERD, HTN, Hypercholesterolemia, Other (Kidney stones, urinary retention with chronic indwelling Vargas catheter, congenital myotonia, chronic bronchitis, GERD, UTI, pneumonia) and Other (Depression, congenital myotonia with
hereditary motor and sensory neuropathy, gait disorder, chronic Vargas for urinary retention, BPH, kidney stones)
ED Past Surgical History: Urological
Patient has exhibited threatening behavior?: No
PSI?: No
Social History
Tobacco: Non-smoker
Alcohol: None
Drug: None
Personal:
Living: other (September 2022 living in a rehab)
Employment: Retired
Family History
Family History: Other (Noncontributory)
Review of Systems
Review of Systems
Allergies reviewed?: Yes
All Other Systems: ROS reviewed and negative except as documented in HPI and ROS
Phy Exam
Physical Exam
Physical Exam:
GEN: Well appearing, NAD, WDWN
HEENT: Oral mucosa moist, no scleral icterus
Cardiac: Regular rate
Lung: No respiratory distress, no tachypnea
MSK: No gross deformity or injuries
Skin: Good color, no pallor or jaundice, no rashes
Neuro: AO x3, moves all extremities freely
Psych: Calm, cooperative
Course
Orders/Labs/Results
Orders:
Orders
02/23/25 09:42
Urine Culture Urgent
DIXIE Source: Urine
Specimen Description:
Obtained by: Indwelling Catheter
Date Specimen was Collected: 02/23/25
Time Specimen was Collected: 09:41
Vital Signs
Initial and Last Documented VS:
Initial Vital Signs
Temp Pulse Resp BP Pulse Ox
97.6 F 118 18 173/109 98
02/23/25 08:49 02/23/25 08:49 02/23/25 08:49 02/23/25 08:49 02/23/25 08:49
Last Documented Vital Signs
Temp Pulse Resp BP Pulse Ox
97.6 F 118 18 173/109 98
02/23/25 08:49 02/23/25 08:49 02/23/25 08:49 02/23/25 08:49 02/23/25 09:38
MDM/Problems Addressed
MDM/Problems Addressed:
Catheter draining well in the ED, will send urine culture for completeness should patient have any further complications however do not anticipate need for treatment as this will likely be colonized. Provided patient and partner with piston syringe
and education regarding self irrigation should symptoms like this occur again
*Pulse Oximetry
SaO2: 98
Oxygen Mode of Delivery: Room air
Patient hypoxic: no (98% room air)
*Critical Care Note
Total Time (30-74mins, 75-104mins- exclusive of procedures): Not Applicable
ED Attending Note
-
Portions of this chart may have been created with voice recognition software.� Occasional wrong word or��sound alike� substitutions may have occurred due to the inherent limitations of voice recognition software.
Discharge Plan
Departure
Patient Disposition: Home (Routine Discharge)
Date of Disposition: 02/23/25
Time of Disposition: 09:39
Patient with high blood pressure during this ER visit?: No
Discharge Problem:
Complication, blocked Vargas catheter
Instructions: How to Care for Your Vargas Catheter, Male
Prescriptions:
No Action
simvastatin 20 MG tablet
20 mg PO DAILY
cholecalciferol (vitamin D3) [Vitamin D3] 25 mcg (1,000 unit) Tablet
25 mcg PO DAILY Qty: 0
Citrucel 500 mg Tablet
1,000 mg PO BID
omeprazole 20 mg Capsule,Delayed Release(Dr/Ec)
20 mg PO DAILY
mirtazapine 7.5 mg Tablet
15 mg PO DAILY
ipratropium-albuterol 0.5 mg-3 mg(2.5 mg base)/3 mL solution for nebulization
3 ml INHALATION R BID
potassium citrate 10 mEq (1,080 mg) tablet extended release
10 meq PO BID
mirabegron [Myrbetriq] 25 mg tablet extended release 24 hr
25 mg PO DAILY
Centrum Silver Tablet
1 tab PO DAILY
Probiotic Acidophilus
1 cap PO DAILY
prednisone 20 mg tablet
40 mg PO DAILY Qty: 10 0RF
azithromycin [Zithromax Z-Breezy] 250 mg tablet
250 mg PO DAILY 5 Days Qty: 6 0RF
Rx Instructions:
2 TABLETS DAY 1, THEN ONE TABLET DAY 2-5.
Referrals:
Minh Jones MD [Family Provider, Internal Medicine]
Interventions
Interventions:
*Risk Screen - Suicide Last Done: 02/23/25 08:49
*General Assessment Last Done: 02/23/25 09:52
*Neglect/Abuse Screening Last Done: 02/23/25 08:49
*ED- Fall Risk Assessment Last Done: 02/23/25 09:52
*ED COVID-19 Vaccine History Last Done: 02/23/25 09:52
*Nursing Disposition Last Done: 02/23/25 09:52
MI-[employer]kom-Cqqwyskytu Assessment Last Done: 02/23/25 09:52
ED-Male Genitourinary Assessment Last Done: 02/23/25 09:52
Discharge Date and Time
Discharge Date/Time: 02/23/25 09:53
Print Language: YORUBA
== END 2025-02-23 09:53 | disposition home or self-care (01) ==
LOC: EMR 08:48
PROVIDERS: EMERGENCY PHYSICIAN Emergency Medicine; FAMILY PHYSICIAN Internal Medicine Geriatric Medicine
DX: T83.091A Other mechanical complication of indwelling urethral catheter, initial encounter (principal); X58.XXXA Exposure to other specified factors, initial encounter; E78.00 Pure hypercholesterolemia, unspecified; I10 Essential (primary) hypertension
CPT/HCPCS: 99283; 87077; 87086

== ENCOUNTER 2025-03-01 12:15 | Emergency (ER) | payer OTHER, SELFPAY ==
[2025-03-01 12:18] VITALS: BP 191/111
--- NOTE | 2025-03-01 13:07 | ED.GENMED ---
History of Present Illness
General
Chief Complaint: Catheter/Tube Problem
Source: patient
Time Seen by Provider: 03/01/25 13:01
History of Present Illness
History of Present Illness:
84-year-old male presents emergency room complaining of inability to pass urine. Patient has a indwelling Vargas catheter which is clogged. Patient has required a Vargas catheter for 2 years. He denies fever. He is very uncomfortable from bladder
distention.
Past History
Past History
ED Past Medical History: GERD, HTN, Hypercholesterolemia, Other (Kidney stones, urinary retention with chronic indwelling Vargas catheter, congenital myotonia, chronic bronchitis, GERD, UTI, pneumonia) and Other (Depression, congenital myotonia with
hereditary motor and sensory neuropathy, gait disorder, chronic Vargas for urinary retention, BPH, kidney stones)
ED Past Surgical History: Urological
Patient has exhibited threatening behavior?: No
PSI?: No
Social History
Tobacco: Non-smoker
Alcohol: None
Drug: None
Personal:
Living: other (September 2022 living in a rehab)
Employment: Retired
Family History
Family History: Other (Noncontributory)
Phy Exam
Physical Exam
Physical Exam:
General: Awake, Alert, Oriented X3. Appears chronically ill
Vitals: unremarkable
Head: Atraumatic
Eyes: Pupils equal, EOMI
Throat: Airway intact, no exudates
Neck: Trachea midline
Lungs: Clear and equal b/l
Heart: Regular rate, no murmurs
Abd: Soft, palpable bladder, No pulsatile mass
Genitalia: Normal uncircumcised genitalia with indwelling Vargas catheter
Skin: Warm, dry, no rash
Extremities: pulses equal b/l, no edema
Course
Orders/Labs/Results
Orders:
Orders
03/01/25 13:07
Vargas Placement- Treatment ONCE
Reason for insertion: Outlet obstruction
Vital Signs
Initial and Last Documented VS:
Initial Vital Signs
Temp Pulse Resp BP Pulse Ox
97.6 F 116 20 191/111 98
03/01/25 12:18 03/01/25 12:18 03/01/25 12:18 03/01/25 12:18 03/01/25 12:18
Last Documented Vital Signs
Temp Pulse Resp BP Pulse Ox
97.6 F 116 20 191/111 98
03/01/25 12:18 03/01/25 12:18 03/01/25 12:18 03/01/25 12:18 03/01/25 13:09
MDM/Problems Addressed
MDM/Problems Addressed:
Patient presents with obstruction of his Vargas catheter. Patient's had a Vargas catheter in quite some time. He had immediate relief of symptoms with the replacement of the catheter and about 1000 cc of urine returned. Given the patient has
longstanding Vargas catheter no further intervention necessary at this point. Patient stable for discharge home. He has no fever and so obtaining a urinalysis would not be helpful as he is likely colonized.
*Pulse Oximetry
SaO2: 98
Oxygen Mode of Delivery: Room air
Patient hypoxic: no
*Critical Care Note
Total Time (30-74mins, 75-104mins- exclusive of procedures): Not Applicable
ED Attending Note
-
Portions of this chart may have been created with voice recognition software.� Occasional wrong word or��sound alike� substitutions may have occurred due to the inherent limitations of voice recognition software.
Discharge Plan
Departure
Patient Disposition: Home (Routine Discharge)
Date of Disposition: 03/01/25
Time of Disposition: 13:57
Patient with high blood pressure during this ER visit?: No
Condition: Good
Discharge Problem:
Obstructed Vargas catheter
Instructions: How to Care for Your Vargas Catheter, Male
Prescriptions:
No Action
simvastatin 20 MG tablet
20 mg PO DAILY
cholecalciferol (vitamin D3) [Vitamin D3] 25 mcg (1,000 unit) Tablet
25 mcg PO DAILY Qty: 0
Citrucel 500 mg Tablet
1,000 mg PO BID
omeprazole 20 mg Capsule,Delayed Release(Dr/Ec)
20 mg PO DAILY
mirtazapine 7.5 mg Tablet
15 mg PO DAILY
ipratropium-albuterol 0.5 mg-3 mg(2.5 mg base)/3 mL solution for nebulization
3 ml INHALATION R BID
potassium citrate 10 mEq (1,080 mg) tablet extended release
10 meq PO BID
mirabegron [Myrbetriq] 25 mg tablet extended release 24 hr
25 mg PO DAILY
Centrum Silver Tablet
1 tab PO DAILY
Probiotic Acidophilus
1 cap PO DAILY
prednisone 20 mg tablet
40 mg PO DAILY Qty: 10 0RF
azithromycin [Zithromax Z-Breezy] 250 mg tablet
250 mg PO DAILY 5 Days Qty: 6 0RF
Rx Instructions:
2 TABLETS DAY 1, THEN ONE TABLET DAY 2-5.
Referrals:
Minh Jones MD [Family Provider, Internal Medicine]
Interventions
Interventions:
*Risk Screen - Suicide Last Done: 03/01/25 12:18
*General Assessment Last Done: 03/01/25 13:45
*Neglect/Abuse Screening Last Done: 03/01/25 12:18
*ED- Fall Risk Assessment Last Done: 03/01/25 13:45
FQ-Tkjlou-Yjzkgdumtq Assessment Last Done: 03/01/25 13:45
ED-Male Genitourinary Assessment Last Done: 03/01/25 13:45
Discharge Date and Time
Print Language: MALTESE
== END 2025-03-01 14:00 | disposition home or self-care (01) ==
LOC: EMR 12:15
PROVIDERS: EMERGENCY PHYSICIAN Emergency Medicine; FAMILY PHYSICIAN Internal Medicine Geriatric Medicine
DX: T83.091A Other mechanical complication of indwelling urethral catheter, initial encounter (principal); X58.XXXA Exposure to other specified factors, initial encounter; N32.89 Other specified disorders of bladder; E78.00 Pure hypercholesterolemia, unspecified; I10 Essential (primary) hypertension
CPT/HCPCS: 51702; 99284; 71046; 93005

== ENCOUNTER 2025-03-01 16:40 | Emergency (ER) | payer OTHER, SELFPAY ==
[2025-03-01 16:57] VITALS: BP 124/81
[2025-03-01 17:48] VITALS: BP 141/72
[2025-03-01 18:00] VITALS: BP 131/66
--- NOTE | 2025-03-01 18:56 | ED.GENMED ---
History of Present Illness
General
Chief Complaint: Breathing Problem
Time Seen by Provider: 03/01/25 18:56
History of Present Illness
History of Present Illness:
TIME OF INITIAL EVALUATION
- 7 PM
REVIEW OF OLD RECORDS
- I reviewed records. The patient was seen here earlier today and was treated for a clogged indwelling Vargas catheter. At that time he had relief of symptoms after replacement of the catheter and 1000 mL of urine was returned. I also further
review records and the patient was seen here with a 'acute exacerbation of chronic bronchitis' just over 2 months ago. The patient was admitted for pneumonia 1-1/2 years ago.
Note:
CHIEF COMPLAINT(S)
Shortness of breath.
HISTORY OF PRESENT ILLNESS
The patient is an 84-year-old male presenting with shortness of breath. According to the patients , the symptom began around 4 oclock and has been concerning enough for the patient to seek medical attention. There is a history of a myotonic
disorder affecting the patients muscle cells, including the respiratory muscles, causing them to contract normally but relax slowly, impacting breathing. The patient reports feeling slightly better compared to earlier in the day but still
experiences difficulty breathing. Previous attempts at CPAP were not well-tolerated. states that he did have improvement after use of the RespiBelt and neb.
EXTERNAL RECORDS REVIEWED
The emergency room records from earlier today were reviewed. It has been a few months since the patient had a chest x-ray.
CHRONIC MEDICAL CONDITIONS SIGNIFICANTLY AFFECTING CARE
Myotonic disorder affecting respiratory muscles.
PHYSICAL EXAM
- General: Appears somewhat anxious
- HEENT: Moist oral mucosa
- Cardiovascular: No murmurs, normal heart rate, regular rhythm, No chest wall tenderness
- Pulmonary: The patient is slightly tachypneic with decreased respiratory effort however the at bedside states that he is now at his chronic baseline state and has no concerns currently, there may be some very faint rales at the bases
- Abdomen: Soft with no peritoneal signs, no tenderness
- Neurologic: Equally decreased strength all extremities, no coordination deficits
- Psychiatric: Appears somewhat anxious
- Extremities: Nontender, no edema, moves all extremities equally
- Skin: No rash, no lesions
PROBLEM LIST
- Acute: Shortness of breath, Potential Anxiety.
- Chronic: Myotonic disorder affecting respiratory function.
PLAN
- Administer a breathing treatment for the patients dyspnea.
- Obtain a chest x-ray to rule out any severe pulmonary conditions such as pneumonia.
- Reassess the patients condition post-treatment and x-ray to evaluate the possibility of discharge later this evening if symptoms improve.
DIFFERENTIAL DIAGNOSIS
The Differential Diagnosis includes, in no particular order and is not limited to:
1. Chronic obstructive pulmonary disease exacerbation
2. Congestive heart failure
3. Pulmonary embolism
4. Pneumonia
5. Anxiety-related respiratory symptoms
6. Respiratory muscle weakness secondary to the myotonic disorder
7. Acute bronchitis
8. Asthma exacerbation
9. Pleural effusion
10. Interstitial lung disease
RADIOLOGY
- Chest x-ray obtained
EKG
- Sinus 109, right bundle branch block without significant change from 03/01/2025
Heart rate while I was in the room at 7:05 PM was 96
LABS
- No clear indication for labs at this time
UPDATE
- Nebulizer given
SUMMARY OF ENCOUNTER
The patient, an 84-year-old male with a known myotonic disorder affecting respiratory muscles, presented to the emergency department with shortness of breath. Previous CPAP attempts were not well-tolerated. Upon arrival, the patients oxygen levels
were observed to be within normal limits. A chest x-ray was performed and reviewed independently by both the radiologist and myself, with no notable findings of severe pneumonia warranting hospital admission. A breathing treatment was administered,
and the patient reported some improvement in respiratory symptoms. It was determined that his current condition did not require advanced intervention such as BiPAP. The patients provided additional history, noting a potential anxiety
component to his symptoms. The decision was made to manage the patients care conservatively, considering the myotonic disorders potential impact on respiratory function.
DISPOSITION
Discharge.
ASSESSMENT
Shortness of breath potentially related to anxiety and myotonic disorder affecting respiratory muscles.
EMERGENCY TREATMENTS ADMINISTERED
Administered a breathing treatment for respiratory distress.
REASSESSMENT
Oxygen levels remained stable, and the patient did not exhibit signs that required hospital admission.
PLAN
Discharge the patient with close outpatient follow-up to monitor symptom progression. Suggest taking anxiety medication as previously used, especially before sleep, to assess the impact on his symptoms.
INDEPENDENT REVIEW OF LABS AND INTERPRETATION OF TESTS
- My independent interpretation of the chest x-ray is consistent with no signs of severe pneumonia, aligning with the radiologists report.
- My independent interpretation of oxygen levels indicates they remained stable and normal during the monitoring.
PATIENT EDUCATION AND COUNSELING
Explained to the patient and his about the myotonic disorders effect on respiratory muscles and the importance of monitoring symptoms at home. Discussed potential role of anxiety in respiratory distress and advised on the use of previously
prescribed anxiety medication.
FOLLOW-UP INSTRUCTIONS
Advise follow-up with the primary care physician or specialist to monitor respiratory symptoms and discuss management of anxiety if symptoms persist or worsen.
MEDICATION RECONCILIATION
Discussed the use of existing anxiety medications with the patient during tonights episode for potential symptom relief.
MEDICAL DECISION MAKING
- Number and Complexity of Problems Addressed: Chronic conditions affecting care include the myotonic disorder affecting respiratory function. Differential diagnosis considered: Chronic obstructive pulmonary disease exacerbation, congestive heart
failure, pulmonary embolism, pneumonia, anxiety-related respiratory symptoms, respiratory muscle weakness secondary to the myotonic disorder, acute bronchitis, asthma exacerbation, pleural effusion, interstitial lung disease.
- Data:
- Category 1: Reviewed external emergency room records from earlier today. Reviewed oxygen levels, chest x-ray findings.
- Category 2: Additional history obtained from the patients .
- Risk: Consideration of Admission/Observation: Escalation of care including admission/observation was considered given the complexity and risk of the patients presenting complaint and underlying myotonic disorder. However, ultimately I feel the
patient is safe for outpatient management with close follow-up. Reasoning: Work-up reassuring, does not reveal any acute life/organ-threatening processes, patients symptoms well controlled upon reevaluation, reexamination is reassuring, vitals are
stable, patient agreeable with discharge, reliable for follow-up.
DIAGNOSIS
- Shortness of breath due to anxiety and myotonic disorder impacting respiratory muscles (ICD-10: R06.02).
The patient states that he did feel better after the nebulizer was given but then started to feel somewhat worse. I do feel there is a component of anxiety as well. His states that he does take a sleep aid which oftentimes does help him
get to sleep. We agreed that this would be the best course of action at this time and we are all in agreement that he does not require admission to the hospital.
Past History
Past History
ED Past Medical History: GERD, HTN, Hypercholesterolemia, Other (Kidney stones, urinary retention with chronic indwelling Vargas catheter, congenital myotonia, chronic bronchitis, GERD, UTI, pneumonia) and Other (Depression, congenital myotonia with
hereditary motor and sensory neuropathy, gait disorder, chronic Vargas for urinary retention, BPH, kidney stones)
ED Past Surgical History: Urological
Patient has exhibited threatening behavior?: No
PSI?: No
Social History
Tobacco: Non-smoker
Alcohol: None
Drug: None
Personal:
Living: other (September 2022 living in a rehab)
Employment: Retired
Family History
Family History: Other (Noncontributory)
Phy Exam
Physical Exam
Physical Exam:
See HPI
Scores
Heart Failure Risk
Heart Failure Risk Score: Not Applicable
Course
Orders/Labs/Results
Orders:
Orders
03/01/25 17:02
Electrocardiogram (*1) Urgent
Reason for Study: Shortness of Breath
EKG- Treatment ONCE
03/01/25 19:05
Ipratropium/Albuterol Sulfate [Duoneb] 3 ml INH R NOW STA
CR Chest - 2 Views Urgent
Comment:
Reason For Exam: dyspnea, h/o myotonia; bronchitis
Vital Signs
Initial and Last Documented VS:
Initial Vital Signs
Temp Pulse Resp BP Pulse Ox
36.7 C 110 20 124/81 96
03/01/25 16:57 03/01/25 16:57 03/01/25 16:57 03/01/25 16:57 03/01/25 16:57
Last Documented Vital Signs
Temp Pulse Resp BP Pulse Ox
36.7 C 100 24 131/66 96
03/01/25 16:57 03/01/25 18:15 03/01/25 18:15 03/01/25 18:00 03/01/25 19:17
*Pulse Oximetry
SaO2: 96
Oxygen Mode of Delivery: Room air
Patient hypoxic: no
*Critical Care Note
Total Time (30-74mins, 75-104mins- exclusive of procedures): Not Applicable
ED Attending Note
-
Portions of this chart may have been created with voice recognition software.� Occasional wrong word or��sound alike� substitutions may have occurred due to the inherent limitations of voice recognition software.
Discharge Plan
Departure
Patient Disposition: Home (Routine Discharge)
Date of Disposition: 03/01/25
Time of Disposition: 21:19
Patient with high blood pressure during this ER visit?: Yes
Discharge Problem:
Shortness of breath, Myotonia congenita
Instructions: Shortness of Breath (Dyspnea) (DC), BLOOD PRESSURE
Prescriptions:
No Action
simvastatin 20 MG tablet
20 mg PO DAILY
cholecalciferol (vitamin D3) [Vitamin D3] 25 mcg (1,000 unit) Tablet
25 mcg PO DAILY Qty: 0
Citrucel 500 mg Tablet
1,000 mg PO BID
omeprazole 20 mg Capsule,Delayed Release(Dr/Ec)
20 mg PO DAILY
mirtazapine 7.5 mg Tablet
15 mg PO DAILY
ipratropium-albuterol 0.5 mg-3 mg(2.5 mg base)/3 mL solution for nebulization
3 ml INHALATION R BID
potassium citrate 10 mEq (1,080 mg) tablet extended release
10 meq PO BID
mirabegron [Myrbetriq] 25 mg tablet extended release 24 hr
25 mg PO DAILY
Centrum Silver Tablet
1 tab PO DAILY
Probiotic Acidophilus
1 cap PO DAILY
prednisone 20 mg tablet
40 mg PO DAILY Qty: 10 0RF
azithromycin [Zithromax Z-Breezy] 250 mg tablet
250 mg PO DAILY 5 Days Qty: 6 0RF
Rx Instructions:
2 TABLETS DAY 1, THEN ONE TABLET DAY 2-5.
Referrals:
Minh Jones MD [Family Provider, Internal Medicine]
Activity Restrictions/Additional Instructions:
The chest x-ray did not show any acute abnormality. Room air oxygen level was 96%. EKG is relatively unremarkable. Return here if worse or other concerns.
Interventions
Interventions:
*Risk Screen - Suicide Last Done: 03/01/25 16:57
*General Assessment Last Done: 03/01/25 19:17
*Neglect/Abuse Screening Last Done: 03/01/25 16:57
*ED- Fall Risk Assessment Last Done: 03/01/25 19:17
*ED COVID-19 Vaccine History Last Done: 03/01/25 19:17
ED- Cardiac Assessment Last Done: 03/01/25 19:17
ED- Pulmonary Assessment Last Done: 03/01/25 19:17
Discharge Date and Time
Print Language: UPPER SORBIAN
[2025-03-01] MEDS: DUONEB 3 ML INH (19:13)
== END 2025-03-01 21:30 | disposition home or self-care (01) ==
LOC: EMR 16:40
PROVIDERS: EMERGENCY PHYSICIAN Emergency Medicine; FAMILY PHYSICIAN Internal Medicine Geriatric Medicine
DX: G71.12 Myotonia congenita (principal); R06.02 Shortness of breath; E78.00 Pure hypercholesterolemia, unspecified; I10 Essential (primary) hypertension; J40 Bronchitis, not specified as acute or chronic
CPT/HCPCS: 94640; 99283; 71046; 93005

== ENCOUNTER 2025-04-10 12:43 | Emergency (ER) | payer MEDICARE, OTHER, SELFPAY ==
[2025-04-10 12:44] VITALS: BMI 22.3
[2025-04-10 12:52] VITALS: BP 153/103
--- NOTE | 2025-04-10 13:12 | ED.GENMED ---
History of Present Illness
General
Chief Complaint: Catheter/Tube Problem
Source: patient
Exam Limitations: none
Time Seen by Provider: 04/10/25 12:56
Nursing documentation reviewed up to this point in time: agreed with
History of Present Illness
History of Present Illness:
Note:
CHIEF COMPLAINT(S)
Bleeding from the urinary system.
HISTORY OF PRESENT ILLNESS
The patient is an 84-year-old male with a history of bladder issues, presenting with bleeding from the urinary tract. The bleeding is described as having a lot of sediment, and it is currently dripping. The patient has a chronic condition requiring
urinary catheterization due to an inability of the bladder to contract fully, likely attributable to a condition described as 'myotonia' impacting the control of the bladder. The bleeding began after a catheter was removed, and the current catheter
in place is an 18 [place] Vargas catheter.
The patient noted that the inability for the bladder to contract started after rehabilitation post-COVID, when it was found that the bladder was full despite no urinary output. This led to the initial catheter placement.
A urinary catheter had been previously placed because of suspected incomplete bladder contraction. The catheter was last changed on October 22 (three-two).
Currently, there is a plan to replace the Vargas catheter with a three-way catheter to allow for irrigation in an effort to manage the bleeding. The bleeding is suspected to be due to trauma to the urethra, likely from catheterization.
PHYSICAL EXAM
General: Chronic ill appearance.
Cardiovascular: Normal heart sounds, no heart murmurs, normal rate.
Pulmonary: No respiratory distress noted.
Gastrointestinal: Abdomen soft and non-tender.
Genitourinary: Blood present at the urethral meatus.
PROBLEM LIST
- Acute bleeding from the urinary tract, likely traumatic.
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
PLAN
- Replace the current Vargas catheter with a three-way catheter for irrigation purposes to manage the bleeding.
- Monitor urine output and ensure that the bleeding resolves with treatment.
DIFFERENTIAL DIAGNOSIS
The Differential Diagnosis includes, in no particular order and is not limited to:
1. Urethral trauma
2. Bladder cancer
3. Urinary tract infection
4. Benign prostatic hyperplasia
5. Bladder stones
6. Coagulopathy
7. Prostatitis
8. Urethral stricture
9. Renal carcinoma
10. Severe dehydration causing hematuria
CARE-UPDATE
04/10/25 - 14:52
Patient tolerated urinary catheter and irrigation well, achieving clear irrigation output. Admission is not deemed necessary; patient will be discharged home. Follow-up with urology is advised.
Disposition:
SUMMARY OF ENCOUNTER
The patient, an 84-year-old male with a history of chronic bladder dysfunction secondary to myotonia, presented to the emergency department due to bleeding from the urinary system, described as sediment-filled and dripping. This hematuria occurred
following the removal of a urinary catheter and is believed to be due to urethral trauma from catheterization. The patient has a chronic condition requiring catheterization as his bladder fails to contract properly, which began after a
rehabilitation stint post-COVID infection. Management in the emergency department included the decision to replace the current Vargas catheter with a three-way catheter for irrigation to manage the bleeding.
DISPOSITION
Discharged home.
ASSESSMENT
The patient exhibits hematuria likely secondary to traumatic urethral injury from recent catheter manipulation.
PLAN
- Replace the current Vargas catheter with a three-way catheter for irrigation to manage the bleeding.
- Monitor urine output and ensure that the bleeding resolves with this treatment.
- Follow up with urology for ongoing management of chronic bladder dysfunction.
FOLLOW-UP INSTRUCTIONS
The patient is advised to follow up with urology for further evaluation and management of the chronic bladder condition and to ensure resolution of the hematuria.
MEDICAL DECISION MAKING
-Complexity of Data Reviewed: Chronic conditions affecting care including chronic bladder dysfunction secondary to myotonia. Differential diagnosis includes urethral trauma, bladder cancer, urinary tract infection, benign prostatic hyperplasia,
bladder stones, coagulopathy, prostatitis, urethral stricture, renal carcinoma, and dehydration-induced hematuria.
-Risk: Consideration of Admission/Observation: Escalation of care including admission/observation was considered given the complexity and risk of the patient�s presenting complaint, exam findings, and/or their underlying comorbidities. However,
ultimately I feel the patient is safe for outpatient management with close follow up. Reasoning: Work-up reassuring, does not reveal any acute life/organ threatening processes, patients symptoms well controlled upon reevaluation, reexamination is
reassuring, vitals are stable, patient agreeable with discharge, reliable for follow-up.
DIAGNOSIS
- Hematuria, unspecified (R31.9)
- Urethral trauma (S37.31XA)
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
Past History
Past History
ED Past Medical History: GERD, HTN, Hypercholesterolemia, Other (Kidney stones, urinary retention with chronic indwelling Vargas catheter, congenital myotonia, chronic bronchitis, GERD, UTI, pneumonia) and Other (Depression, congenital myotonia with
hereditary motor and sensory neuropathy, gait disorder, chronic Vargas for urinary retention, BPH, kidney stones)
ED Past Surgical History: Urological
Patient has exhibited threatening behavior?: No
PSI?: No
Social History
Tobacco: Non-smoker
Alcohol: None
Drug: None
Personal:
Living: other (September 2022 living in a rehab)
Employment: Retired
Family History
Family History: Other (Noncontributory)
Phy Exam
Physical Exam
Physical Exam:
.
Course
Orders/Labs/Results
Orders:
Orders
04/10/25 13:08
CBI- Treatment PRN
Solution: ns
Vargas Placement- Treatment ONCE
Reason for insertion: Chronic Vargas on Admit
Vital Signs
Initial and Last Documented VS:
Initial Vital Signs
Temp Pulse Resp BP Pulse Ox
97.5 F 107 20 153/103 99
04/10/25 12:52 04/10/25 12:52 04/10/25 12:52 04/10/25 12:52 04/10/25 12:52
Last Documented Vital Signs
Temp Pulse Resp BP Pulse Ox
97.5 F 107 20 153/103 99
04/10/25 12:52 04/10/25 12:52 04/10/25 12:52 04/10/25 12:52 04/10/25 13:12
*Pulse Oximetry
SaO2: 99
Oxygen Mode of Delivery: Room air
Patient hypoxic: no
*Critical Care Note
Total Time (30-74mins, 75-104mins- exclusive of procedures): Not Applicable
ED Attending Note
-
Portions of this chart may have been created with voice recognition software.� Occasional wrong word or��sound alike� substitutions may have occurred due to the inherent limitations of voice recognition software.
Discharge Plan
Departure
Patient Disposition: Home (Routine Discharge)
Date of Disposition: 04/10/25
Time of Disposition: 14:52
Patient with high blood pressure during this ER visit?: Yes
Condition: Good
Discharge Problem:
Gross hematuria, Chronic indwelling Vargas catheter, Myotonia congenita
Instructions: How to Care for Your Vargas Catheter, Male, BLOOD PRESSURE
Prescriptions:
No Action
simvastatin 20 MG tablet
20 mg PO DAILY
cholecalciferol (vitamin D3) [Vitamin D3] 25 mcg (1,000 unit) Tablet
25 mcg PO DAILY Qty: 0
Citrucel 500 mg Tablet
1,000 mg PO BID
omeprazole 20 mg Capsule,Delayed Release(Dr/Ec)
20 mg PO DAILY
mirtazapine 7.5 mg Tablet
15 mg PO DAILY
ipratropium-albuterol 0.5 mg-3 mg(2.5 mg base)/3 mL solution for nebulization
3 ml INHALATION R BID
potassium citrate 10 mEq (1,080 mg) tablet extended release
10 meq PO BID
mirabegron [Myrbetriq] 25 mg tablet extended release 24 hr
25 mg PO DAILY
Centrum Silver Tablet
1 tab PO DAILY
Probiotic Acidophilus
1 cap PO DAILY
prednisone 20 mg tablet
40 mg PO DAILY Qty: 10 0RF
azithromycin [Zithromax Z-Breezy] 250 mg tablet
250 mg PO DAILY 5 Days Qty: 6 0RF
Rx Instructions:
2 TABLETS DAY 1, THEN ONE TABLET DAY 2-5.
Referrals:
Alessandro Nice MD [Active, Urology] - Call in 1-3 days for appt
UNKNOWN - PT DOES,NOT KNOW [Family Provider]
Interventions
Interventions:
*Risk Screen - Suicide Last Done: 04/10/25 12:52
*General Assessment Last Done: 04/10/25 12:52
*Neglect/Abuse Screening Last Done: 04/10/25 12:52
*ED COVID-19 Vaccine History Last Done: 04/10/25 12:52
QK-Bmakng-Vtjwiyihln Assessment Last Done: 04/10/25 13:43
ED-Male Genitourinary Assessment Last Done: 04/10/25 13:43
Discharge Date and Time
Print Language: [place]
== END 2025-04-10 17:39 | disposition home or self-care (01) ==
LOC: EMR 12:43
PROVIDERS: EMERGENCY PHYSICIAN Emergency Medicine
DX: R31.0 Gross hematuria (principal); G71.12 Myotonia congenita; N40.1 Benign prostatic hyperplasia with lower urinary tract symptoms; R33.8 Other retention of urine; I10 Essential (primary) hypertension; E78.00 Pure hypercholesterolemia, unspecified; J42 Unspecified chronic bronchitis; K21.9 Gastro-esophageal reflux disease without esophagitis; F32.A Depression, unspecified; G60.0 Hereditary motor and sensory neuropathy; Z87.440 Personal history of urinary (tract) infections
CPT/HCPCS: 99283; 51702